=== PATIENT | female | born 1980 | race Caucasian/White ===

== ENCOUNTER 2018-05-11 10:15 | Inpatient (IN) | payer OTHER ==
--- NOTE | 2018-05-10 17:51 | PDGENHP ---
History and Physical - Chief Complaint RIGHT HIP PAIN - History of Present Illness 1.~~~Bilateral~Hip Dyplasia; RIGHT SIDE SYMPTOMATIC 2.~~~Bilateral~Femoroacetabular impingement (JOSELIN) Cam type,~with~resultant labral tear HISTORY OF PRESENT ILLNESS: Noéis a 38 y.o.~very~~active female~who I have had the pleasure to consult on today. 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 Jayes~right~hip pain~started 3 years ago after a , with~no~ recalled trauma or injury, and with no~previous complaints. Noédoes not have~a known history of hip dysplasia. Nadja saw Zan Landis PA-C who referred her to us. Presentation today is of~anterior, posterior, lateral~right~hip pain. ~The hip~ does not~wake her~at night and does~click and catch on her. Sitting~can be uncomfortable~for her.~Noédoes not~report suffering from lower back pain episodes. Noéhas~participated in physical therapy and has~tried other conservative measures including chiropractic treatments.~Britney~has not~received sufficient symptomatic improvement. Noéhas not~utilized medication for pain management. Noédenies issues with the left~hip. ~ Noéunderstands that she~has a hip and pelvis problem which should be researched and wishes to get a better understanding of her~hip status, followed by an establishment of a treatment strategy, hoping she~would be able to get back to her~well being active life. History: Past medical history:~~ None which is relevant~ Relevant familial history:~None which is relevant~ Past surgical history:~ No. Surgery Anesthesia 1 epidural Noéhas never received general anesthesia. I have reviewed, verified and agree with the past medical, surgical, family and social history. Current Medications:~has a current medication list which includes the following prescription(s): levonorgestrel-ethin estradiol. ALLERGIES:~has No Known Allergies. Objective: Physical Examination: Noéis 5~feet 1~inches tall and weighs 117~Lbs. Noéis AAO x3; she~is well-nourished, in NAD. Skin is warm and dry. ~Breathing is non-labored. ~CV with RRR by pulse. Abdomen is soft, NTND. Currently,~she~walks with a normal~gait. Trendelenburg sign is~negative~and proprioception is reduced,~both~sides. She~presents with moderate~signs of joint laxity. Beightons Score:~5 Lower spine examination is~negative~for sciatic or femoral nerve irritation with negative~SLR &~femoral stretch tests. Range of motion of the spine is normal~for flexion, extension, and rotations, with no~associated pain. Strength, Sensation and pulses are~normal -~bilaterally Ankles and knees exams are~normal~and no~mal-alignment is evident. She~has~left~0.5~cm short leg length discrepancy. Thigh circumference is~symmetric~with no evidence for muscle atrophy~on both~ sides. Hip ROM (degrees): FL ER At 90~hip FL IR At 90~hip FL AB AD EX IR Neutral hip ER Neutral hip R 120 50 15 35 5 10 25 50 L 130 45 25 45 5 10 25 40 Specific hip and pelvis tests: Impingement Test NANCY Roll Add. Longus R +++ +++ Negative Negative L Negative Negative Negative Negative Glut. Med ITB Posterior Imp R Negative 5/5 strength Negative 5/5 strength Negative L Negative 5/5 strength Negative 5/5 strength Negative Squeeze test measured~strong Bony Symphysis pubis is~pain free~to touch while concentric activity of the rectus abdominis, does not~produce pain at its insertion. Ilio Psos specific tests are~positive for pain during cycling~for the right hip~ and remarkable for non painful snap HF has~pain ~the right hip. Posterior capsule: tender RIGHT HIP Greater trochanteric burse is~pain free~on both hips. Piriformis tests: FAIR is~negative,~with no~local signs of neuritis related to sciatic nerve. SIJs examination is~normal~with normal~NANCY in relation and local tenderness. Hamstrings tests are~negative~functional contraction and negative~tendinopathy both hips. Imaging: Radiology studies which I have personally reviewed, analyzed and measured are below: XR: AP of the hip and pelvis: Performed in a~suboptimal~technique Coccyx~at level of~pubic symphysis Standing [place] Lines are~interrupted. Minimal~Pathological signs are seen in the Symphysis Pubis. Minimal~Pathological signs are seen at the Ischial tuberosity. ~ Specific measurements show: NSA~ LCE Sourcil~Angle Sharp's angle Lat. Cam Lat. Pincer C.Over~sign Head~Coverage % ATDmm R N 20 12 39 + - - 67 N L N 27 6 36 + - - 88 N Pos. wall sign ISS NAD ~~Dysplasia Comments R Negative Negative 19.7~mm +++ L Negative Negative 21.9~mm + Sclerosis Sup. Lat. OA Cysts Joint Space-WBZ Joint Space-Medial R Negative Negative Negative 5.9~mm 4.7~mm L Negative Negative Negative 5.0~mm 4.0~mm X Table lateral: Anterior cam lesion is~seen~on the right hip Alpha Angle: ~ Right~59~jelena Impression and plan:~ Nadja~is a 38 y.o.~active female~suffering from Right~hip pain due to Hip Dyplasia~and~Femoroacetabular impingement (JOSELIN) Cam type,~with~resultant labral tear~causing significant disability to~her~and altering her~sport and life activities. Physical examination, imaging, and~her~story correspond with the diagnosis mentioned above. I explained that hip dysplasia is a condition wherein the hip joint has excessive play~and instability due to a variety of factors, including the depth and adequacy of the socket, the orientation of the femur bone, and ligament laxity around the hip joint. Dysplasia ranges in severity from borderline to steffen, with treatment options being specific to the specific nature of the problem. Left untreated, the instability in the hip joint can cause progressive tearing of the labrum and deterioration of the surface cartilage, ultimately resulting in progressive osteoarthritis of the hip. I explained that femoral malrotation is a condition wherein the hip joint has excessive play~and instability due to the orientation of the femur bone or where the femur bone is rotated towards the back of the hip socket resulting in additional impingement pathology. This pathology ranges in severity with treatment options being specific to the nature of the problem. Left untreated, the ante-torsion related instability or the retro-torsion related impingement in the hip joint can cause progressive tearing of the labrum and deterioration of the surface cartilage, ultimately resulting in progressive osteoarthritis of the hip. ~ I reviewed conservative treatment options for Femoral malrotation and JOSELIN including activity modification to avoid positions of impingement or instability , physical therapy, non-steroidal anti-inflammatory medications, and various injections (corticosteroid and PRP) aimed at reducing inflammation in the hip joint or/and preventing dynamic instability and impingement. PRP injections may promote healing and reduce symptoms in certain cases but it will not repair chronically damaged tissue. Although these measures may help to buy time~and reduce current level of symptoms, they are not a definitive solution to the problem given the underlying abnormality in the shape of the hip joint. I explained that femoroacetabular impingement (JOSELIN - Cam type) arises due to a bony or soft tissue conflict between the femur (ball) and acetabulum (socket) caused by an abnormality in the shape of the femoral head and neck. Over time, repetitive impingement can result in damage to the labrum and adjacent surface cartilage within the socket, ultimately giving rise to progressive osteoarthritis of the hip. I explained that although a labral tear can be a source of pain, it is rarely the root of the problem and typically occurs secondary to an underlying abnormality in the shape and mechanics of the hip joint. I reviewed conservative treatment options for Dysplasia and JOSELIN including activity modification to avoid positions of impingement or instability, physical therapy, non-steroidal anti-inflammatory medications, and various injections (corticosteroid and PRP) aimed at reducing inflammation in the hip joint or/and preventing dynamic instability and impingement. PRP injections may promote healing and reduce symptoms in certain cases but it will not repair chronically damaged tissue. Although these measures may help to buy time~and reduce current level of symptoms, they are not a definitive solution to the problem given the underlying abnormality in the shape of the hip joint. Patients who have failed conservative management and continue to experience symptoms are candidates for definitive surgical treatment, which may consist of hip arthroscopy alone or in combination with more invasive bony realignment procedures of the hip socket and/or femur called periacetabular osteotomy (GEREMIAS) or derotational femoral osteotomy (DFO). Hip arthroscopy typically includes treating the labrum with either repair or reconstruction of the torn labrum; as well as addressing the underlying abnormalities by restoring the normal shape to the hip joint. If the cartilage is damaged a Microfracture surgical procedure may also be necessary to help stimulate the growth of fibrocartilage. If a patient requires a labral reconstruction or a Microfracture, the initial rehabilitation from the surgery may take longer, but the director long term care results are typically favorable. I reviewed the technical aspects of periacetabular osteotomy (GEREMIAS) including risks, benefits, and expected course of recovery.~Nadja~understands that GEREMIAS is an inpatient procedure carried out through two medium sized incisions on the front and back of the hip joint. The hip socket is cut, realigned, and stabilized with 2 3 internal screws. Risks include infection, bleeding, injury to nearby nerves or vessels, stiffness, persistent pain, instability, failure of bony healing, implant related complications, and venous thromboembolic disease. Rarely, revision surgery may be required to address these problems. Risks, potential complications, side effects and recovery from surgical procedure were discussed in length. We explained how this surgery is an open procedure, and though patients tend to do well in the long-term, it involves significant pain in the first 2-4 weeks post-op and a rather lengthy rehab.~Overall recovery takes approximately 6 12~months depending on the extent of damage and degree of repair. Nadja~understands that she~will undergo hip arthroscopy 1 week prior to the GEREMIAS to address damage inside the hip joint. Nadja~understands that hip arthroscopy,~GEREMIAS and DFO~are three~separate procedures that are best performed three~weeks~apart, with the arthroscopy commencing first to "tighten up" any pathology evident in the hip joint (labral repair, etc.),~the GEREMIAS open procedure occurring 7-10 days later to realign the acetabulum~and the DFO involves realigns the femur. Nadja~will review the info presented. In order to obtain more detailed information regarding the alignment, orientation, and shape of the bony hip and pelvis I will order a CT scan to be performed. The results of the CT scan, including femoral torsion and acetabular version measured values and 3D images, will aid me in deciding on the best treatment strategy and surgical pre-planning. Despite her relative clinical femoral retro-torsion she doesn't require a DFO based on today's CT measurements.~ She will schedule Hip Arthroscopy with dr Boyle and then GEREMIAS with us. Nadja~is happy with this plan. I have also supplied~her~with handouts, outlining the expected surgical treatment and rehab involved. I wish~Nadja~all the best, ~~ Flaco Silverio, PAC History Information - Allergies/Home Medication List Allergies/Adverse Reactions: No Known Allergies Allergy (Verified 04/28/18 13:45) Home Medications: NK [No Known Home Meds] 04/28/18 [Last Taken Unknown] I have personally reviewed and updated: medical history - Social History Smoking Status: Never smoked Review of Systems Review of Systems: Physical Exam Physical Exam:
[2018-05-11] MEDS ORDERED: ceFAZolin 2 GM/DEXTROSE 100 ML IV ONE (11:55)
[2018-05-11] MEDS ORDERED: SCOPOLAMINE HYDROBROMIDE 1 MG/3 DAYS PATCH TD ONE (11:55)
[2018-05-11] MEDS ORDERED: PREGABALIN 150 MG CAP PO ONE (11:55)
[2018-05-11] MEDS ORDERED: ACETAMINOPHEN 500 MG TAB PO ONE (11:55)
[2018-05-11] MEDS ORDERED: TRANEXAMIC ACID 1,000 MG in NS 100 ML IV ONE (11:55)
[2018-05-11] MEDS ORDERED: LIDOCAINE 1% 2 ML INJ ID PRN (12:01)
[2018-05-11] MEDS ORDERED: LR 1,000 ML IV ONE (12:01)
[2018-05-11] MEDS ORDERED: LIDOCAINE 1% 2 ML INJ ONE (12:19)
[2018-05-11] MEDS ORDERED: CITRATE DEXTROSE SOLN 500 ML BAG ONE (13:05)
[2018-05-11] MEDS ORDERED: MIDAZOLAM 2 MG/2 ML VIAL IVP ONE (13:07)
--- NOTE | 2018-05-11 13:09 | PDANEPAE ---
ANE Past Medical History - Cardiovascular History Hx Hypertension: No Hx Arrhythmias: No Hx Chest Pain: No Hx Coronary Artery / Peripheral Vascular Disease: No Hx CHF / Valvular Disease: No Hx Palpitations: No - Pulmonary History Hx COPD: No Hx Asthma/Reactive Airway Disease: No Hx Recent Upper Respiratory Infection: No Hx Oxygen in Use at Home: No Hx Sleep Apnea: No Sleep Apnea Screening Result - Last Documented: Negative - Neurologic History Hx Cerebrovascular Accident: No Hx Seizures: No Hx Dementia: No - Endocrine History Hx Diabetes: No Obesity: no - Renal History Hx Renal Disorders: No - Liver History Hx Hepatic Disorders: No - Neurological & Psychiatric Hx Hx Neurological and Psychiatric Disorders: No - Cancer History Hx Cancer: No - Congenital Disorder History Hx Congenital Disorders: No - GI History GERD: no Hx Gastrointestinal Disorders: No - Other Health History Other Health History: wears glasses for reading - Chronic Pain History Chronic Pain: No - Surgical History Prior Surgeries: ANE Review of Systems Review of Systems: - Exercise capacity METS (RN): 6 METS ANE Patient History - Allergies Allergies/Adverse Reactions: No Known Allergies Allergy (Verified 04/28/18 13:45) - Home Medications Home medications: home medication list seen and reviewed Home Medications: NK [No Known Home Meds] 04/28/18 [Last Taken Unknown] - NPO status NPO Status: no food or drink >8 hours NPO Since - Liquids (Date): 05/11/18 NPO Since - Liquids (Time): 10:00 NPO Since - Solids (Date): 05/11/18 NPO Since - Solids (Time): 03:30 - Anes Hx Anes Hx: no prior problems - Smoking Hx Smoking Status: Never smoked - Family Anes Hx Family Hx Anesthesia Complications: none ANE Labs/Vital Signs - Labs Result Diagrams: 05/11/18 12:56 - Vital Signs Blood Pressure: 120/75 Heart Rate: 54 Respiratory Rate: 16 O2 Sat (%): 98 Height: 154.94 cm Weight: 52.617 kg ANE Physical Exam - Airway Neck exam: FROM Mallampati Score: Class 1 Mouth exam: normal dental/mouth exam - Pulmonary Pulmonary: no respiratory distress, no rales or rhonchi, clear to auscultation - Cardiovascular Cardiovascular: regular rate and rhythym, no murmur, rub, or gallop - ASA Status ASA Status: I ANE Anesthesia Plan Anesthesia Plan: general endotracheal anesthesia, spinal (morphine)
[2018-05-11] MEDS ORDERED: PROPOFOL 200 MG/20 ML VIAL ONE (13:18)
[2018-05-11] MEDS ORDERED: fentaNYL 100 MCG/2 ML INJ ONE ×2 (13:18→19:16)
[2018-05-11] MEDS ORDERED: ONDANSETRON 4 MG/2 ML VIAL ONE ×2 (13:24→19:37)
[2018-05-11] MEDS ORDERED: DEXAMETHASONE 4 MG/ML VIAL ONE ×2 (13:24)
[2018-05-11] MEDS ORDERED: morphINE PF 5 MG/10 ML INJ ONE (13:29)
[2018-05-11 14:32] LABS: PLATELET COUNT 280 10^3/uL (150-400)
[2018-05-11] MEDS ORDERED: ENALAPRILAT DIHYDRATE 1.25 MG/ML VIAL ONE (15:01)
[2018-05-11] MEDS ORDERED: ACETAMINOPHEN 500 MG TAB PO PRN (18:23)
[2018-05-11] MEDS ORDERED: ONDANSETRON 4 MG/2 ML VIAL IVP PRN ×3 (18:23→20:00)
[2018-05-11] MEDS ORDERED: DIAZEPAM 5 MG/ML 1 ML SYR IVP PRN (18:23)
[2018-05-11] MEDS ORDERED: PROMETHAZINE HCL 25 MG/ML INJ IVP PRN (18:23)
[2018-05-11] MEDS ORDERED: oxyCODONE IR 5 MG TAB PO PRN (18:23)
[2018-05-11] MEDS ORDERED: LR 500 ML IV PRN (18:23)
[2018-05-11] MEDS ORDERED: fentaNYL 100 MCG/2 ML INJ IVP PRN (18:23)
[2018-05-11] MEDS ORDERED: NALOXONE HCL 0.4 MG/ML INJ IVP PRN ×3 (18:23→20:00)
[2018-05-11] MEDS ORDERED: HYDROCODONE/APAP 5/325 TAB PO PRN (18:23)
[2018-05-11] MEDS ORDERED: ACETAMINOPHEN 325 MG TAB PO PRN (18:47)
[2018-05-11] MEDS ORDERED: MAGNESIUM HYDROXIDE 30 ML UDCUP PO PRN (18:47)
[2018-05-11] MEDS ORDERED: BISACODYL 10 MG SUPP PR PRN (18:47)
[2018-05-11] MEDS ORDERED: POLYETHYLENE GLYCOL 3350 17 GM PKT PO PRN (18:47)
[2018-05-11] MEDS ORDERED: LACTULOSE 20 GM/30 ML UDCUP PO PRN (18:47)
[2018-05-11] MEDS ORDERED: METOCLOPRAMIDE 10 MG/2 ML VIAL IVP PRN ×2 (18:50→20:00)
[2018-05-11] MEDS ORDERED: HYDROmorphONE/DILAUDID 6 MG/30 ML PCA IV PRN ×2 (18:50→22:00)
[2018-05-11] MEDS ORDERED: diphenhydrAMINE 25 MG CAP PO PRN (18:50)
[2018-05-11] MEDS ORDERED: NS 1,000 ML IV SCH (19:00)
--- NOTE | 2018-05-11 19:15 | POSTANESTH ---
Post Anesthetic Evaluation Cardiovascular Status: Normal, Stable, Similar to Pre-Op Cond Respiratory Status: Normal, Stable, Similar to Pre-op Cond. Level of Consciousness/Mental Status: Can Participate in Eval, Alert and Oriented Pain Control: Adequate, Prn Tx Ordered Nausea/Vomiting Control: Adequate, Prn Tx Ordered Complications Possibly Related to Anesthesia: None Noted
[2018-05-11] MEDS ORDERED: RN MESSAGE:REGARDING ANALGESIC ORDERING DR MISC SCH (20:00)
[2018-05-11] MEDS: RN MESSAGE:DATE/TIME OF ADMIN MISC SCH (21:48)
[2018-05-11] MEDS: ONDANSETRON DISINTEGRATING 4 MG TAB PO PRN (22:12)
[2018-05-11] MEDS: NAPROXEN SODIUM 220 MG TAB PO SCH (23:37)
[2018-05-11] MEDS: oxyCODONE IR 5 MG TAB PO SCH (23:38)
[2018-05-11] MEDS: SENNOSIDES/DOCUSATE SODIUM TAB PO SCH (23:42)
[2018-05-12] MEDS: oxyCODONE IR 5 MG TAB PO SCH ×6 (02:37→19:12)
[2018-05-12] MEDS: ONDANSETRON DISINTEGRATING 4 MG TAB PO PRN (05:34)
[2018-05-12] MEDS: ACETAMINOPHEN 325 MG TAB PO PRN ×3 (05:43→17:59)
[2018-05-12] MEDS: NAPROXEN SODIUM 220 MG TAB PO SCH ×3 (09:34→21:42)
[2018-05-12] MEDS: PANTOPRAZOLE SODIUM 40 MG TAB PO SCH (09:34)
[2018-05-12] MEDS: SENNOSIDES/DOCUSATE SODIUM TAB PO SCH ×2 (09:34→21:41)
[2018-05-12] MEDS: RN MESSAGE:DATE/TIME OF ADMIN MISC SCH ×2 (09:36→22:44)
--- NOTE | 2018-05-12 09:40 | PDMN ---
Medical Necessity Medical necessity: ONIEL GRG musculoskeletal sgy HOOD inpt only OP: Eduardo ARCHULETA
--- NOTE | 2018-05-12 09:51 | SUROPNOTE ---
MAGEN Operative Report - Surgery Surgery was performed at [facility] on~05/11/18~ Diagnosis:~Right 1. Hip Acetabular Dysplasia ~ Operation: Right~Yareli Acetabular Osteotomy (GEREMIAS) Surgeon: Mariano Robbins MD Broadcast Systems Engineer:~~Millie Gresham MD Anesthetic: General + epidural Procedure: General anesthetic. Antibiotics given. Cell saver in use. Fluoroscopy. Phase 1: Position lateral, diagonal skin incision between ischial tuberosity and greater trochanter as for posterior hip approach. Blunt split of glut max fibers. Identification of fat pad overlying sciatic nerve. Exposure of sciatic nerve under fat pad, gently retracting it away-medially to ischial tuberosity. Exposure of subcotoloid fossa proximal to short rotators. Using osteotomes and under fluoroscopy, osteotomy of subcotoloid fossa to sciatic notch proximal to ischial spine. Closure of lateral cut. Patient is turned supine. Phase 2: Skin incision just distal to ASIS. Using diathermy the iliac spine was exposed and inguinal ligament + Sartorious were retracted medially, taking the LFCN with them, protecting it. Inner ilium was dissected from iliacus muscle bluntly , with a cob and swab. Dissection continued towards lateral superior ramus pubis. Using fluoroscopy an osteotomy of lateral superior ramus, just medial to tear drop, was performed with~curved fish mouth osteotome. Phase 3: Osteotomy lines of the ilium were marked with diathermy as pre planned according to XR/CT and expected correction of acatabulum. 2 Shanz screws were drilled into central acetabular fragment, corresponding with planned correction angles, in order to mobilize central acetabular fragment after osteotomy is complete. ~Iliac osteotomy was performed with reciprocating saw and the main acetabular fragment was moved to realign weight bearing position. After confirmation of correction using fluoroscopy in AP and false profile planes, the fragment was fixed with 2 -~5.5mm~~full threaded~screws~and 1 -~4mm~~full threaded~screw. Inguinal ligament and Sartorious were attached back to ASIS through drill holes. Incision was closed according to soft tissue layers. Skin was closed with~subdermal Monocryl. Final fluoro shots were obtained to confirm position/correction. After surgery~Nadja~moved both lower limbs and had no NV motor compromise. Specimen - none Bleeding -~500ml Complication - none Evaluation under anesthesia: IR at 90 degrees hip flexion prior to GEREMIAS was~10~degrees and after GEREMIAS was 0-5~ degrees. Bleeding:~500~cc into cell-saver, 270~of blood products were returned to patient. Post op instructions: 1.~Toe touch~weight bearing crutches for 2~weeks 2. Epidural analgesia for 24-48 hours 3. Continuous SCD 4. Aspirin 81 mg X1 day once Epidural is discontinued 5. Avoid hip flexion past 90 and hip External rotation. 6. PT according to my recommendations at follow up visit Kind regards, Dr. Mariano Robbins .
--- NOTE | 2018-05-12 14:18 | ASMTCMCOM ---
CM Note CM Note Notes: Pt had planned R GEREMIAS, resides with spouse and child. Hospitalist consult order in. OT rec home/HHC, PT rec HHC. CM to follow pt progress. Date Signed: 05/12/2018 02:17 PM Electronically Signed By:MARK Harris
[2018-05-12] MEDS ORDERED: NS 250 ML IV ONE (15:08)
--- NOTE | 2018-05-12 18:47 | GCON ---
REFERRING PHYSICIAN: Mariano Robbins MD REASON FOR CONSULTATION: Medical management. HISTORY OF PRESENT ILLNESS: The patient is a healthy 38-year-old woman who developed hip pain after she had a section approximately 3 years ago, in December of 2014. She was noted to have bilateral hip dysplasia that had worsened over time, in particular on the right side. She had a labral repair a week ago at the [facility]. She did well with this procedure. She is postop day #1 for a right periacetabular osteotomy. Overall, her pain has been well managed. She denies any chest pain, shortness of breath. She has chronic low blood pressure with her systolic usually running in the 110s. PAST MEDICAL HISTORY: None. PAST SURGICAL HISTORY: in December of 2014. SOCIAL HISTORY: She has been for 5 years. She has a son. She does not drink. She does not smoke. 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 MEDICATIONS: None. ALLERGIES: None. FAMILY HISTORY: Her mom has hypertension and diet-controlled diabetes. Her father has a history of skin cancer. REVIEW OF SYSTEMS: A 10-point review of systems was performed, was negative, other than the pertinent positives in the HPI and past medical history. PHYSICAL EXAM: GENERAL: The patient is a 38-year-old female who appears to be in excellent health. VITAL SIGNS: Blood pressure is 88/61, heart rate of 64, respiratory rate of 16. O2 sats on room air are 96%. Temperature is 37 degrees Celsius. EYES: Pupils are equal and reactive. EOMs are intact. No conjunctival injection noted. ENT: Normal ears. Hearing intact. Normal lips , teeth. Oral airway is moist. NECK: Trachea is midline. CARDIOVASCULAR: She is bradycardic, in a regular rhythm. No murmurs, rubs, or gallops noted. CHEST/LUNGS: Normal respiratory effort. Clear, without wheezing or rales noted. ABDOMEN: Soft, nontender. : She has a Jackson catheter in place. SKIN: No rashes or ulcer. Her right upper thigh/hip area has some slight swelling and slightly tender to the touch. PSYCHIATRIC: She is alert and oriented. Normal mood, affect. Normal judgment, insight and memory. LABORATORY DATA: White blood cell count of 9.92, hemoglobin 11.6, hematocrit of 34.5. Chemistry: Sodium is 134, potassium 4.8, chloride of 104, CO2 of 25, BUN of 14, creatinine 0.7, glucose of 108, calcium 8.3. ASSESSMENT/PLAN: 1. Hypotension. Her blood pressure is running a bit lower than her baseline. Will give her a normal saline bolus and follow. 2. Mild hyponatremia. Will follow. 3. Anemia. This is expected blood loss. 4. Hip dysplasia. She is status post a GEREMIAS repair on the right side and overall doing very well with this. Care per orthopedic surgeon. 5. Deep venous thrombosis prophylaxis, has been placed on aspirin therapy. 6. The hospitalist will continue to follow this delightful patient during her hospital stay. /[id number]/MODL MTDD
--- NOTE | 2018-05-12 19:15 | PDPAINCON ---
Pain Management Consultation Patient referred by : Rosendo - Subjective Pain at rest (/10): 3 Pain is: under control Side effects include: drowsy, itchiness, nausea Activity: out of bed with assistance - Objective Technique: spinal opioid - Assessment/Plan Assessment/Plan: other (Nausea/itchiness/drowsiness have improved throughout the day. Now taking Po oxycodone with adequeate pain control.)
--- NOTE | 2018-05-12 21:37 | SOAPPROG ---
SOAP Progress Note Assessment/Plan: Assessment: 1 day post op Right Periacetabular Osteotomy Plan: Increase Oxycodone PRN Aspirin 81mg and SCDs for DVT prophylaxis Naproxen for HO up with PT/OT Jackson out when up to bed side commode pelvis X-ray on POD#3 05/12/18 21:34 Subjective: Nadja was seen tonight at 2030. She described not being as well pain managed as might be beneficial, only taking 5mg Oxycodone Q4hrs. Jackson still in place. She had nausea and vomiting right after surgery but denies any current nausea. She also denies cp or sob. Objective: Vital Signs Temp Pulse Resp BP Pulse Ox 36.7 C 70 16 98/60 L 97 05/12/18 19:48 05/12/18 19:48 05/12/18 19:48 05/12/18 19:48 05/12/18 19:48 Laboratory Results 05/12/18 04:35 05/12/18 04:35 05/11/18 05/12/18 05/13/18 05:59 05:59 05:59 Intake Total 2720 850 Output Total 2225 1450 Balance 495 -600 Well appearing in NAD Right Hip: dressings clean dry intact ecchymosis and edema some thigh numbness NVI distally Full ROM of foot and ankle ICD10 Worksheet Patient Problems: Problems Problem Status Onset Post-operative pain Acute - ICD10 Problem Qualifiers (1) Post-operative pain
[2018-05-12] MEDS: DIAZEPAM 2 MG TAB PO PRN (21:49)
[2018-05-13] MEDS: oxyCODONE IR 5 MG TAB PO SCH ×7 (01:37→22:27)
[2018-05-13] MEDS: DIAZEPAM 2 MG TAB PO PRN (04:25)
[2018-05-13] MEDS: PANTOPRAZOLE SODIUM 40 MG TAB PO SCH (09:07)
[2018-05-13] MEDS: NAPROXEN SODIUM 220 MG TAB PO SCH ×3 (09:07→22:26)
[2018-05-13] MEDS: SENNOSIDES/DOCUSATE SODIUM TAB PO SCH ×2 (09:07→22:26)
[2018-05-13] MEDS: ACETAMINOPHEN 325 MG TAB PO PRN ×2 (10:15→17:56)
--- NOTE | 2018-05-13 17:01 | HOSPPROG ---
Hospitalist Progress Note Assessment/Plan: #Hypotension: resolved with IVFs, some chantel-op blood loss. Monitor H/H. Stop IVFs #Hip dysplasia: s/p GEREMIAS #ABLA: perioperative. Monitor H/H #Hypovolemic hyponatremia: resolved with IVFs #Diet: regular #Disp: please call if questions Subjective: no dizziness today, has appetite Objective: Vital Signs Temp Pulse Resp BP Pulse Ox 36.6 C 83 17 108/65 95 05/13/18 16:00 05/13/18 16:00 05/13/18 16:00 05/13/18 16:00 05/13/18 16:00 Laboratory Results 05/13/18 04:45 05/13/18 11:51 05/12/18 05/13/18 05/14/18 05:59 05:59 05:59 Intake Total 2720 1967 500 Output Total 2225 3150 2350 Balance 495 -4153 -8250 - Physical Exam Constitutional: no apparent distress Eyes: PERRL Ears, Nose, Mouth, Throat: moist mucous membranes Cardiovascular: tachycardia Respiratory: no respiratory distress Gastrointestinal: normoactive bowel sounds Genitourinary: lawrence in urethra Musculoskeletal: other (right pelvic incisions dressed, CDI) Neurologic: AAOx3 Psychiatric: interacting appropriately ICD10 Worksheet Patient Problems: Problems Problem Status Onset Post-operative pain Acute
--- NOTE | 2018-05-13 18:35 | SOAPPROG ---
SOAP Progress Note Assessment/Plan: Assessment: 38 yo F POD2 s/p R GEREMIAS, doing well post-op. Plan: Continue pain medication PO/IV PRN Aspirin 81mg and SCDs for DVT prophylaxis Naproxen for HO up with PT/OT f/u TOV after lawrence removal pelvis X-ray on POD#3 Plan for d/c once pain controlled, safe from PT standpoint, and XR cleared by Dr. Robbins 05/13/18 18:31 Subjective: Pt reports pain control has much improved today, initial rough period after spinal wore off. Denies dizziness, SOB, CP, N/V. Overall doing well without complaints. Objective: Vital Signs Temp Pulse Resp BP Pulse Ox 36.6 C 83 17 108/65 95 05/13/18 16:00 05/13/18 16:00 05/13/18 16:00 05/13/18 16:00 05/13/18 16:00 Laboratory Results 05/13/18 04:45 05/13/18 11:51 05/12/18 05/13/18 05/14/18 05:59 05:59 05:59 Intake Total 2720 1967 1000 Output Total 2225 3150 2350 Balance 495 -1183 -1350 Gen: NAD, pleasant RLE: R hip dressings c/d/i Some decreased lateral thigh sensation 5/10 compared to contralateral 5/5 TA, GSC, EHL Palpable distal pulses ICD10 Worksheet Patient Problems: Problems Problem Status Onset Post-operative pain Acute
[2018-05-13] MEDS: ASPIRIN EC 81 MG TAB PO SCH (22:25)
[2018-05-14] MEDS: oxyCODONE IR 5 MG TAB PO SCH ×5 (02:06→17:08)
[2018-05-14] MEDS: ACETAMINOPHEN 325 MG TAB PO PRN (02:07)
[2018-05-14] MEDS: ASPIRIN EC 81 MG TAB PO SCH (08:50)
[2018-05-14] MEDS: NAPROXEN SODIUM 220 MG TAB PO SCH ×2 (08:50→15:23)
[2018-05-14] MEDS: PANTOPRAZOLE SODIUM 40 MG TAB PO SCH (08:50)
[2018-05-14] MEDS: SENNOSIDES/DOCUSATE SODIUM TAB PO SCH (09:00)
--- NOTE | 2018-05-14 11:02 | HOSPPROG ---
Hospitalist Progress Note Assessment/Plan: #Hypotension: resolved with IVFs, some chantel-op blood loss. Monitor H/H. Stop IVFs #Hip dysplasia: s/p GEREMIAS -schedule APAP 1gm TID, decrease oxycodone to 5mg #ABLA: perioperative. Monitor H/H #Hypovolemic hyponatremia: resolved with IVFs #Diet: regular #Disp: please call if questions Subjective: "feeling goofy after oxycodone this morning". No BM, but passing gas Objective: Vital Signs Temp Pulse Resp BP Pulse Ox 36.3 C 63 14 98/61 L 96 05/14/18 08:00 05/14/18 08:00 05/14/18 08:00 05/14/18 08:00 05/14/18 08:00 Laboratory Results 05/14/18 04:36 05/13/18 11:51 05/13/18 05/14/18 05/15/18 05:59 05:59 05:59 Intake Total 1967 1850 600 Output Total 3150 2750 Balance -1183 -900 600 - Time Spent With Patient Time Spent with Patient: greater than 25 minutes Time Spent with Patient: Greater than 25 minutes spent on this patients care, greater than 50% of time spent counseling, educating, and coordinating care regarding the above mentioned plan. - Physical Exam Constitutional: no apparent distress Eyes: PERRL Ears, Nose, Mouth, Throat: moist mucous membranes Cardiovascular: regular rate and rhythym Respiratory: no respiratory distress Gastrointestinal: normoactive bowel sounds Genitourinary: lawrence in urethra Musculoskeletal: other (right hip surgical incisions dressed, CDI) Neurologic: AAOx3, CN II-XII Intact ICD10 Worksheet Patient Problems: Problems Problem Status Onset Post-operative pain Acute
--- NOTE | 2018-05-14 15:26 | ASMTCMCOM ---
CM Note CM Note Notes: OT continues to rec HHC/home and PT continues to rec HHC. This CM spoke with pt about HHC specifically considering MD usually has a strict outpatient PT rec. Pt wants to follow all MD recs and has already arranged outpatient PT. Pt has extensive family/friends for support in recovery. Pt declines HHC unless MD recommends it. CM to follow. Date Signed: 05/14/2018 03:25 PM Electronically Signed By:MARK Harris
[2018-05-14 16:00] VITALS: BP 99/65
[2018-05-14] MEDS ORDERED: ACETAMINOPHEN 500 MG TAB PO SCH (16:00)
--- NOTE | 2018-05-18 08:14 | GDS ---
Nadja underwent a right acetabular osteotomy for right hip acetabular dysplasia. Intraoperatively, spinal and Jackson catheters were placed. She was well pain managed postoperatively with a spinal, TWIST TESTER, and oral analgesia. She was up with Physical Therapy her 1st post operative day. Jackson catheter came out by her 2nd postoperative day, and by her 3rd postoperative day, pelvis x- rays were obtained, which showed good bone and screw fixation. She was discharged on her 3rd postoperative day in good condition. She will be nonweightbearing on her right lower extremity for 2 weeks until her 2-week postop visit with Dr. Robbins. She will go home with SCDs to be worn 24 hours a day 7 days a week for 2 weeks and thereafter only at night for another week plus 81 mg of baby aspirin to be taken daily for 1 month, both of these for DVT prophylaxis. /[id number]/MODL MTDD
== END 2018-05-14 18:19 | disposition home or self-care (01) | DRG 941 ==
LOC: OBSVTOIN 11:31 → F3N 11:31 → EDSTATUS 13:00 → F3N 20:02
PROVIDERS: ADMIT Orthopaedic Surgery Sports Medicine; ATTEND Orthopaedic Surgery Sports Medicine
DX: G89.18 Other acute postprocedural pain (principal); Q65.89 Other specified congenital deformities of hip; I95.9 Hypotension, unspecified
CPT/HCPCS: 97116-GP; 97162-GP; 97165-GO; 97530-GO; 97530-GP; 97535-GO; C1713; J0690; J1100; J2250; J2270; J2274; J2405; J2704; J2765; J3010

== ENCOUNTER 2018-11-09 05:47 | Day surgery (SDC) | payer OTHER ==
--- NOTE | 2018-11-08 17:53 | PDGENHP ---
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 Jayes~right~hip pain~started 3 years ago after a , with~no~ recalled trauma or injury, and with~no~previous complaints.~Noédoes not have~a known history of hip dysplasia. Nadja saw Zan Landis PA-C who referred her to us. Presentation today is of~anterior, posterior, lateral~right~hip pain. ~The hip~ does not~wake her~at night and~does~click and catch on~her. Sitting~can be uncomfortable~for her.~Noédoes not~report suffering from lower back pain episodes. Noéhas~participated in physical therapy and has~tried other conservative measures including chiropractic treatments.~Britney~has not~received sufficient symptomatic improvement. Noéhas not~utilized medication for pain management. Noédenies issues with the left~hip. ~ Noéunderstands that~britney~has a hip and pelvis problem which should be researched and wishes to get a better understanding of~her~hip status, followed by an establishment of a treatment strategy, hoping~britney~would be able to get back to~her~well being active life. History: Past medical history:~~ None which is relevant~ Relevant familial history:~None which is relevant~ Past surgical history:~ No. Surgery Anesthesia 1 epidural Noéhas never received general anesthesia. I have reviewed, verified and agree with the past medical, surgical, family and social history. Current Medications:~has a current medication list which includes the following prescription(s): levonorgestrel-ethin estradiol. ALLERGIES:~has No Known Allergies. Objective: Physical Examination: Noéis 5~feet~1~inches tall and weighs~117~Lbs. Noéis AAO x3; she~is well-nourished, in NAD. Skin is warm and dry. ~Breathing is non-labored. ~CV with RRR by pulse. Abdomen is soft, NTND. Currently,~she~walks with a~normal~gait. Trendelenburg sign is~negative~and proprioception~is reduced,~both~sides. She~presents~with moderate~signs of joint laxity.~Beightons Score:~5 Lower spine examination is~negative~for sciatic or femoral nerve irritation with negative~SLR &~femoral stretch tests. Range of motion of the spine is normal~for flexion, extension, and rotations,~with no~associated pain. Strength, Sensation and pulses are~normal -~bilaterally Ankles and knees exams are~normal~and~no~mal-alignment is evident.~ She~has~left~0.5~cm short leg length discrepancy. Thigh circumference is~symmetric~with no evidence for muscle atrophy~on both~ sides. Hip ROM (degrees): FL ER At 90~hip FL IR At 90~hip FL AB AD EX IR Neutral hip ER Neutral hip R 120 50 15 35 5 10 25 50 L 130 45 25 45 5 10 25 40 Specific hip and pelvis tests: Impingement Test NANCY Roll Add. Longus R +++ +++ Negative Negative L Negative Negative Negative Negative Glut. Med ITB Posterior Imp R Negative 5/5 strength Negative 5/5 strength Negative L Negative 5/5 strength Negative 5/5 strength Negative Squeeze test measured~strong Bony Symphysis pubis is~pain free~to touch while concentric activity of the rectus abdominis, does not~produce pain at its insertion. Ilio Psos specific tests are~positive for pain during cycling~for the right hip~ and remarkable for non painful snap HF has~pain ~the right hip. Posterior capsule: tender RIGHT HIP Greater trochanteric burse is~pain free~on both hips. Piriformis tests: FAIR is~negative,~with no~local signs of neuritis related to sciatic nerve. SIJs examination is~normal~with~normal~NANCY in relation and local tenderness. Hamstrings tests are~negative~functional contraction and negative~tendinopathy both hips. Imaging: Radiology studies which I~have personally reviewed, analyzed and measured are below: XR: AP of the hip and pelvis: Performed in a~suboptimal~technique Coccyx~at level of~pubic symphysis Standing [place]~Lines are interrupted. Minimal~Pathological signs are seen in the Symphysis Pubis.~ Minimal~Pathological signs are seen at the Ischial~tuberosity. ~ Specific measurements show: NSA~ LCE Sourcil~Angle Sharp's angle Lat. Cam Lat. Pincer C.Over~sign Head~Coverage % ATDmm R N 20 12 39 + - - 67 N L N 27 6 36 + - - 88 N Pos. wall sign ISS NAD ~~Dysplasia Comments R Negative Negative 19.7~mm +++ L Negative Negative 21.9~mm + Sclerosis Sup. Lat. OA Cysts Joint Space-WBZ Joint Space-Medial R Negative Negative Negative 5.9~mm 4.7~mm L Negative Negative Negative 5.0~mm 4.0~mm X Table lateral: Anterior cam lesion is~seen~on the right hip Alpha Angle: ~ Right~59~jelena Impression and plan:~ Nadja~is a~38 y.o.~active female~suffering from~hip pain due to Hip Dyplasia~ and~Femoroacetabular impingement (JOSELIN) Cam type,~with~resultant labral tear~ causing significant disability to~her~and altering~her~sport and life activities. Physical examination, imaging, and~her~story correspond with the diagnosis mentioned above. I explained that hip dysplasia is a condition wherein the hip joint has excessive play~and instability due to a variety of factors, including the depth and adequacy of the socket, the orientation of the femur bone, and ligament laxity around the hip joint. Dysplasia ranges in severity from borderline to steffen, with treatment options being specific to the specific nature of the problem. Left untreated, the instability in the hip joint can cause progressive tearing of the labrum and deterioration of the surface cartilage, ultimately resulting in progressive osteoarthritis of the hip. I explained that femoral malrotation is a condition wherein the hip joint has excessive play~and instability due to the orientation of the femur bone or where the femur bone is rotated towards the back of the hip socket resulting in additional impingement pathology. This pathology ranges in severity with treatment options being specific to the nature of the problem. Left untreated, the ante-torsion related instability or the retro-torsion related impingement in the hip joint can cause progressive tearing of the labrum and deterioration of the surface cartilage, ultimately resulting in progressive osteoarthritis of the hip. ~ I reviewed conservative treatment options for Femoral malrotation and JOSELIN including activity modification to avoid positions of impingement or instability , physical therapy, non-steroidal anti-inflammatory medications, and various injections (corticosteroid and PRP) aimed at reducing inflammation in the hip joint or/and preventing dynamic instability and impingement. PRP injections may promote healing and reduce symptoms in certain cases but it will not repair chronically damaged tissue. Although these measures may help to buy time~and reduce current level of symptoms, they are not a definitive solution to the problem given the underlying abnormality in the shape of the hip joint. I explained that femoroacetabular impingement (JOSELIN - Cam type) arises due to a bony or soft tissue conflict between the femur (ball) and acetabulum (socket) caused by an abnormality in the shape of the femoral head and neck. Over time, repetitive impingement can result in damage to the labrum and adjacent surface cartilage within the socket, ultimately giving rise to progressive osteoarthritis of the hip. I explained that although a labral tear can be a source of pain, it is rarely the root of the problem and typically occurs secondary to an underlying abnormality in the shape and mechanics of the hip joint. I reviewed conservative treatment options for Dysplasia and JOSELIN including activity modification to avoid positions of impingement or instability, physical therapy, non-steroidal anti-inflammatory medications, and various injections (corticosteroid and PRP) aimed at reducing inflammation in the hip joint or/and preventing dynamic instability and impingement. PRP injections may promote healing and reduce symptoms in certain cases but it will not repair chronically damaged tissue. Although these measures may help to buy time~and reduce current level of symptoms, they are not a definitive solution to the problem given the underlying abnormality in the shape of the hip joint. Patients who have failed conservative management and continue to experience symptoms are candidates for definitive surgical treatment, which may consist of hip arthroscopy alone or in combination with more invasive bony realignment procedures of the hip socket and/or femur called periacetabular osteotomy (GEREMIAS) or derotational femoral osteotomy (DFO). Hip arthroscopy typically includes treating the labrum with either repair or reconstruction of the torn labrum; as well as addressing the underlying abnormalities by restoring the normal shape to the hip joint. If the cartilage is damaged a Microfracture surgical procedure may also be necessary to help stimulate the growth of fibrocartilage. If a patient requires a labral reconstruction or a Microfracture, the initial rehabilitation from the surgery may take longer, but the terminal superintendent results are typically favorable. I reviewed the technical aspects of periacetabular osteotomy (GEREMIAS) including risks, benefits, and expected course of recovery.~Nadja~understands that GEREMIAS is an inpatient procedure carried out through two medium sized incisions on the front and back of the hip joint. The hip socket is cut, realigned, and stabilized with 2 3 internal screws. Risks include infection, bleeding, injury to nearby nerves or vessels, stiffness, persistent pain, instability, failure of bony healing, implant related complications, and venous thromboembolic disease. Rarely, revision surgery may be required to address these problems. Risks, potential complications, side effects and recovery from surgical procedure were discussed in length. We explained how this surgery is an open procedure, and though patients tend to do well in the long-term, it involves significant pain in the first 2-4 weeks post-op and a rather lengthy rehab.~Overall recovery takes approximately 6 12~months depending on the extent of damage and degree of repair. Nadja~understands that she~will undergo hip arthroscopy 1 week prior to the GEREMIAS to address damage inside the hip joint. Nadja~understands that hip arthroscopy,~GEREMIAS and DFO~are three~separate procedures that are best performed three~weeks~apart, with the arthroscopy commencing first to "tighten up" any pathology evident in the hip joint (labral repair, etc.),~the GEREMIAS open procedure occurring 7-10 days later to realign the acetabulum~and the DFO involves realigns the femur. Nadja~will review the info presented. In order to obtain more detailed information regarding the alignment, orientation, and shape of the bony hip and pelvis I will order a CT scan to be performed. The results of the CT scan, including femoral torsion and acetabular version measured values and 3D images, will aid me in deciding on the best treatment strategy and surgical pre-planning. Despite her relative clinical femoral retro-torsion she doesn't require a DFO based on today's CT measurements.~ She will schedule Hip Arthroscopy with dr Boyle and then GEREMIAS with us. Nadja~is happy with this plan. I have also supplied~her~with handouts, outlining the expected surgical treatment and rehab involved. I wish~Noéall the best, ~~ Flaco Silverio, PAC History Information - Allergies/Home Medication List Allergies/Adverse Reactions: No Known Allergies Allergy (Verified 11/09/18 06:04) Home Medications: NK [No Known Home Meds] 10/30/18 [Last Taken Unknown] I have personally reviewed and updated: medical history - Social History Smoking Status: Never smoked Review of Systems Review of Systems: Physical Exam Physical Exam:
[2018-11-09] MEDS ORDERED: PREGABALIN 150 MG CAP PO ONE (06:01)
[2018-11-09] MEDS ORDERED: ceFAZolin 2 GM/DEXTROSE 100 ML IV ONE (06:01)
[2018-11-09] MEDS ORDERED: ACETAMINOPHEN 500 MG TAB PO ONE (06:01)
[2018-11-09] MEDS ORDERED: LIDOCAINE 1% 2 ML INJ ID PRN (06:02)
[2018-11-09] MEDS ORDERED: LR 1,000 ML IV ONE (06:02)
[2018-11-09] MEDS ORDERED: MIDAZOLAM 2 MG/2 ML VIAL IVP ONE (06:47)
--- NOTE | 2018-11-09 06:47 | PDANEPAE ---
ANE History of Present Illness here for hardware removal R hip ANE Past Medical History - Cardiovascular History Hx Hypertension: No Hx Arrhythmias: No Hx Chest Pain: No Hx Coronary Artery / Peripheral Vascular Disease: No Hx CHF / Valvular Disease: No Hx Palpitations: No - Pulmonary History Hx COPD: No Hx Asthma/Reactive Airway Disease: No Hx Recent Upper Respiratory Infection: No Hx Oxygen in Use at Home: No Hx Sleep Apnea: No Sleep Apnea Screening Result - Last Documented: Negative - Neurologic History Hx Cerebrovascular Accident: No Hx Seizures: No Hx Dementia: No - Endocrine History Hx Diabetes: No - Renal History Hx Renal Disorders: No - Liver History Hx Hepatic Disorders: No - Neurological & Psychiatric Hx Hx Neurological and Psychiatric Disorders: No - Cancer History Hx Cancer: No - Congenital Disorder History Hx Congenital Disorders: No - GI History Hx Gastrointestinal Disorders: No - Other Health History Other Health History: wears glasses for reading - Chronic Pain History Chronic Pain: No - Surgical History Prior Surgeries: RT HIP GEREMAIS 05/11/18. ANE Review of Systems Review of systems is: negative Review of Systems: - Exercise capacity Exercise capacity: >=4 METS METS (RN): 5 METS ANE Patient History - Allergies Allergies/Adverse Reactions: No Known Allergies Allergy (Verified 11/09/18 06:29) - Home Medications Home medications: home medication list seen and reviewed Home Medications: NK [No Known Home Meds] 10/30/18 [Last Taken Unknown] - NPO status NPO Status: no food or drink >8 hours NPO Since - Liquids (Date): 11/08/18 NPO Since - Liquids (Time): 23:00 NPO Since - Solids (Date): 11/08/18 NPO Since - Solids (Time): 20:00 - Smoking Hx Smoking Status: Never smoked - Family Anes Hx Family Hx Anesthesia Complications: none ANE Labs/Vital Signs - Vital Signs Vital Signs: reviewed preoperatively; see RN documention for details Blood Pressure: 120/78 Heart Rate: 65 Respiratory Rate: 18 O2 Sat (%): 98 Height: 154.94 cm Weight: 55.338 kg ANE Physical Exam - Airway Neck exam: FROM Mallampati Score: Class 1 Mouth exam: normal dental/mouth exam - Pulmonary Pulmonary: no respiratory distress - Cardiovascular Cardiovascular: regular rate and rhythym - ASA Status ASA Status: I ANE Anesthesia Plan Anesthesia Plan: GA with mask
[2018-11-09] MEDS ORDERED: LIDOCAINE 1% 5 ML SDV ONE (06:48)
[2018-11-09] MEDS ORDERED: PROPOFOL/EMULSION 500 MG/50 ML BOTTLE IV ONE (06:58)
[2018-11-09] MEDS ORDERED: NALOXONE HCL 0.4 MG/ML INJ IVP PRN (07:05)
[2018-11-09] MEDS ORDERED: DEXAMETHASONE 4 MG/ML VIAL IVP PRN (07:05)
[2018-11-09] MEDS ORDERED: fentaNYL 100 MCG/2 ML INJ IVP PRN (07:05)
[2018-11-09] MEDS ORDERED: LR 500 ML IV PRN (07:05)
[2018-11-09] MEDS ORDERED: oxyCODONE IR 5 MG TAB PO PRN (07:05)
[2018-11-09] MEDS ORDERED: HYDROmorphONE/DILAUDID 1 MG/ML INJ IVP PRN (07:05)
[2018-11-09] MEDS ORDERED: HYDROCODONE/APAP 5/325 TAB PO PRN (07:05)
[2018-11-09] MEDS ORDERED: ALBUTEROL 3 ML DEYVIAL IH PRN (07:05)
[2018-11-09] MEDS ORDERED: NS 500 ML IV PRN (07:05)
[2018-11-09] MEDS ORDERED: fentaNYL 100 MCG/2 ML INJ ONE (07:10)
[2018-11-09] MEDS ORDERED: ONDANSETRON 4 MG/2 ML VIAL ONE ×2 (09:19→10:22)
[2018-11-09] MEDS: ONDANSETRON 4 MG/2 ML VIAL IVP PRN ×2 (09:21→10:24)
--- NOTE | 2018-11-09 09:22 | POSTANESTH ---
Post Anesthetic Evaluation Cardiovascular Status: Normal, Stable Respiratory Status: Normal, Stable Level of Consciousness/Mental Status: Can Participate in Eval Pain Control: Adequate, Prn Tx Ordered Nausea/Vomiting Control: Adequate, Prn Tx Ordered Complications Possibly Related to Anesthesia: None Noted
[2018-11-09] MEDS ORDERED: PROMETHAZINE HCL 25 MG/ML INJ IVP PRN (10:35)
[2018-11-09] MEDS ORDERED: PROMETHAZINE HCL 25 MG/ML INJ ONE (10:41)
[2018-11-09 11:35] VITALS: BP 114/55
== END 2018-11-09 11:30 | disposition home or self-care (01) ==
LOC: FSGY 05:47
PROVIDERS: ATTEND Orthopaedic Surgery Sports Medicine
PROC: 0QP204Z Removal of Internal Fixation Device from Right Pelvic Bone, Open Approach (ICD-10-PCS; principal; 2018-11-09 07:15)
PROC: BQ101ZZ Fluoroscopy of Right Hip using Low Osmolar Contrast (ICD-10-PCS; principal; 2018-11-09 07:15)
DX: T84.84XA Pain due to internal orthopedic prosthetic devices, implants and grafts, initial encounter (principal); Z87.39 Personal history of other diseases of the musculoskeletal system and connective tissue
CPT/HCPCS: J0690; J2250; J2405; J2550; J2704; J3010